=== PATIENT | male | born 1940 | race African-American/Black ===

== ENCOUNTER → 2018-05-25 | Emergency (ER) | payer MEDICARE | LOC: BURERS 13:34 | DX: S61.212A Laceration without foreign body of right middle finger without damage to nail, initial encounter (principal); E11.9 Type 2 diabetes mellitus without complications; E78.5 Hyperlipidemia, unspecified; I10 Essential (primary) hypertension; F17.210 Nicotine dependence, cigarettes, uncomplicated; W26.8XXA Contact with other sharp object(s), not elsewhere classified, initial encounter | CPT/HCPCS: 99282 ==

== ENCOUNTER 2024-06-30 12:53 | Emergency (ER) | payer MEDICARE, OTHER | END 2024-06-30 14:10 | disposition home or self-care (01) | LOC: BURERS 12:53 | DX: T14.8XXA Other injury of unspecified body region, initial encounter (principal); M54.12 Radiculopathy, cervical region; E11.9 Type 2 diabetes mellitus without complications; E78.5 Hyperlipidemia, unspecified; I10 Essential (primary) hypertension; F17.210 Nicotine dependence, cigarettes, uncomplicated; V89.2XXA Person injured in unspecified motor-vehicle accident, traffic, initial encounter; Y93.89 Activity, other specified | CPT/HCPCS: 99283 ==